=== PATIENT | male | born 1990 | race Caucasian/White ===

== ENCOUNTER 2024-11-19 11:41 | Outpatient (CLI) | payer OTHER, SELFPAY ==
--- NOTE | ~2024-11-19 | XR_ITS ---
XR abdomen/kub 1V Ordering provider: Jessica Espinosa APRN History: . Z87.442 - Personal history of urinary calculi . Comparison: None. FINDINGS: BOWEL: Nonobstructive bowel gas pattern. ORGANOMEGALY: None. SIGNIFICANT PATHOLOGIC CALCIFICATIONS: None. OTHER: No free air is seen under the diaphragm. Bilateral hip mild osteoarthritic changes. Attempt of lumbarization of S1. IMPRESSION: NO ACUTE ABDOMINAL FINDINGS. Reviewed, dictated and finalized at location A.
[2024-11-19 18:35] LABS: Hemoglobin 16.3 g/dL (14.0-18.0); Mean Corpuscular Hemoglobin 31.8 pg (26-34); Mean Corpuscular Volume 93.6 fl (80-100); Mean Platelet Volume 10.8 fl (7.4-10.4); Platelet Count Result 264 k/mm3 (150-375); Red Blood Count 5.13 M/mm3 (4.6-6.20); Red Cell Distribution Width 12.6 % (11.5-14.5); White Blood Count 7.2 K/mm3 (4.5-10.0)
[2024-11-19 18:45] LABS: Alanine Aminotransferase 55 U/L (6-50); Albumin Level 4.6 g/dL (3.5-5.1); Alkaline Phosphatase 86 U/L (38-126); Anion Gap 9 mmol/L (4-12); Aspartate Amino Transferase 63 U/L (17-59); Bilirubin,Total 0.7 mg/dL (0.2-1.3); Blood Urea Nitrogen 15 mg/dL (9-20); Calcium 9.1 mg/dL (8.4-10.2); Carbon Dioxide 27 mmol/L (22-30); Chloride 105 mmol/L (98-107); Cholesterol 162 mg/dL (0-200); Estimated Glomerular Filt Rate > 60; Glucose 86 mg/dL (65-110); HDL Direct 38 mg/dL; Potassium 4.1 mmol/L (3.4-5.0); Sodium 141 mmol/L (137-145); Triglycerides 93 mg/dL (<150); Uric Acid 8.3 mg/dL (3.5-8.5)
[2024-11-19 18:56] LABS: LDL Cholesterol Direct 97 mg/dL
== END 2024-11-19 11:42 | disposition home or self-care (01) ==
LOC: ANHBWCLAB 11:43
PROVIDERS: PCP Nurse Practitioner Adult Health; Visit Provider Nurse Practitioner Adult Health
DX: Z13.9 Encounter for screening, unspecified (principal); Z87.442 Personal history of urinary calculi
CPT/HCPCS: 36415; 74018; 80053; 80061; 84443; 84550; 85027